=== PATIENT | female | born 2000 | race Caucasian/White ===

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

== ENCOUNTER 2022-02-06 03:27 | Emergency (ER) | payer OTHER ==
[~2022-02-06] VITALS: Ht 170.1 cm; Wt 52.2 kg
[~2022-02-06 03:27] MED LIST changes: +VIBRAMYCIN100 MG PO
[2022-02-06 04:47] LABS: BILIRUBIN Negative (Negative); BLOOD 3+ (Negative); CLARITY Turbid (Clear); COLOR Yellow (Yellow); GLUCOSE Negative (Negative); KETONE Trace (Negative); LEUKO ESTERASE Trace (Negative); NITRITE Negative (Negative); SPECIFIC GRAVITY 1.025 (1.001-1.030)
[2022-02-06 04:50] LABS: BASO % 0.3 % (0.0-1.0); EOS # 0.3 10*3/uL (0.0-0.4); EOS % 2.6 % (1.0-4.0); HEMATOCRIT 41.2 % (37.0-47.0); LYMPH # 3.5 10*3/uL (1.3-4.4); LYMPH % 32.8 % (27.0-41.0); MEAN CELL VOLUME 89.6 fl (81.0-99.0); MEAN CORPUSCULAR HGB 31.1 pg (27.0-31.0); MEAN CORPUSCULAR HGB CONC 34.7 g/dl (33.0-37.0); MEAN PLATELET VOLUME 10.3 fl (9.6-12.3); MONO # 1.1 10*3/uL (0.1-1.0); NEUT # 5.7 10*3/uL (2.3-7.9); NEUT % 54.1 % (47.0-73.0); PLATELET COUNT AUTOMATED 319 10*3/uL (130-400); RED CELL DISTRI WIDTH 12.4 % (0-14.5); WHITE BLOOD COUNT 10.5 10*3/uL (4.8-10.8)
[2022-02-06 04:59] LABS: ALKALINE PHOSPHATASE 86 U/L (46-116); BUN 7 mg/dl (9-23); CHLORIDE 105 mmol/L (98-107); CREATININE 0.69 mg/dL (0.55-1.02); POTASSIUM 3.4 mmol/L (3.4-5.1); SGPT/ALT 21 U/L (10-49); SODIUM 139 mmol/L (136-145); TOTAL PROTEIN 7.5 gm/dL (6.0-8.0)
[2022-02-06 05:05] LABS: EPITHELIAL CELLS 21-30
[2022-02-06 05:06] LABS: BACTERIA 1+; RBC 31-40 rbc/hpf (0-2)
== END 2022-02-06 06:09 | disposition home or self-care (01) ==
LOC: ED 03:27
PROVIDERS: Emergency Medicine
DX: K52.9 Noninfective gastroenteritis and colitis, unspecified (principal)

== ENCOUNTER 2022-12-14 00:28 | Emergency (ER) | payer OTHER ==
[2022-12-14 00:51] LABS: BILIRUBIN Negative (Negative); BLOOD Negative (Negative); CLARITY Turbid (Clear); COLOR Yellow (Yellow); GLUCOSE Negative (Negative); KETONE Negative (Negative); LEUKO ESTERASE Trace (Negative); NITRITE Positive (Negative); PH 7.5 (4.5-8.0); SPECIFIC GRAVITY 1.015 (1.001-1.030)
[2022-12-14 00:59] LABS: BACTERIA 2+; RBC 0-2 rbc/hpf (0-2)
[2022-12-14 01:22] LABS: HEMATOCRIT 39.2 % (37.0-47.0); MEAN CELL VOLUME 90.7 fl (81.0-99.0); MEAN CORPUSCULAR HGB CONC 34.2 g/dl (33.0-37.0); MEAN PLATELET VOLUME 10.1 fl (9.6-12.3); PLATELET COUNT AUTOMATED 324 10*3/uL (130-400); RED BLOOD COUNT 4.32 10*6/uL (4.10-5.10); RED CELL DISTRI WIDTH 11.9 % (0-14.5); WHITE BLOOD COUNT 14.1 10*3/uL (4.8-10.8)
[2022-12-14 01:23] LABS: MANUAL DIFF REFLEX YES
[2022-12-14 01:43] LABS: BASOPHILS 1 % (0-1); PLATELET SUFFICIENCY NORMAL (NORMAL); TOTAL CELLS COUNTED 100 #CELLS
[2022-12-14 01:44] LABS: ALKALINE PHOSPHATASE 91 U/L (46-116); BUN 10 mg/dl (9-23); CHLORIDE 105 mmol/L (98-107); POTASSIUM 3.6 mmol/L (3.4-5.1); SGPT/ALT 11 U/L (5-49); TOTAL PROTEIN 7.5 gm/dL (6.0-8.0)
[2022-12-14] MEDS ORDERED: OMNICEF300 MG PO (02:39)
== END 2022-12-14 02:57 | disposition home or self-care (01) ==
LOC: ED 00:28
PROVIDERS: Family Medicine
DX: N12 Tubulo-interstitial nephritis, not specified as acute or chronic (principal); Z90.49 Acquired absence of other specified parts of digestive tract; R11.0 Nausea

== ENCOUNTER 2023-03-30 20:52 | Emergency (ER) | payer OTHER ==
[~2023-03-30] VITALS: Ht 172.7 cm; Wt 72.1 kg
[2023-03-30 22:02] LABS: BASO % 0.3 % (0.0-1.0); EOS # 0.2 10*3/uL (0.0-0.4); EOS % 1.2 % (1.0-4.0); HEMATOCRIT 39.8 % (37.0-47.0); LYMPH # 3.8 10*3/uL (1.3-4.4); MEAN CELL VOLUME 92.3 fl (81.0-99.0); MEAN CORPUSCULAR HGB 30.6 pg (27.0-31.0); MEAN CORPUSCULAR HGB CONC 33.2 g/dl (33.0-37.0); MEAN PLATELET VOLUME 9.9 fl (9.6-12.3); MONO # 0.8 10*3/uL (0.1-1.0); NEUT # 9.1 10*3/uL (2.3-7.9); NEUT % 65.1 % (47.0-73.0); PLATELET COUNT AUTOMATED 344 10*3/uL (130-400); RED BLOOD COUNT 4.31 10*6/uL (4.10-5.10); RED CELL DISTRI WIDTH 12.4 % (0-14.5); WHITE BLOOD COUNT 13.9 10*3/uL (4.8-10.8)
[2023-03-30 22:12] LABS: BILIRUBIN Negative (Negative); BLOOD Negative (Negative); CLARITY Turbid (Clear); COLOR Yellow (Yellow); GLUCOSE Negative (Negative); KETONE Negative (Negative); LEUKO ESTERASE 2+ (Negative); NITRITE Negative (Negative)
[2023-03-30 22:31] LABS: ALKALINE PHOSPHATASE 71 U/L (46-116); BUN 5 mg/dl (9-23); CHLORIDE 104 mmol/L (98-107); POTASSIUM 3.7 mmol/L (3.4-5.1); SGPT/ALT 11 U/L (5-49); TOTAL PROTEIN 7.8 gm/dL (6.0-8.0)
[2023-03-30 22:31] LABS: BACTERIA TRACE; EPITHELIAL CELLS TNTC; WBC 16-20 wbc/hpf (0-5)
[2023-03-30] MEDS ORDERED: CEPHALEXIN500 M1 PO (22:55)
== END 2023-03-30 23:15 | disposition home or self-care (01) ==
LOC: ED 20:52
PROVIDERS: Nurse Practitioner Family
DX: O26.891 Other specified pregnancy related conditions, first trimester (principal); R82.71 Bacteriuria; Z3A.01 Less than 8 weeks gestation of pregnancy; Z90.49 Acquired absence of other specified parts of digestive tract

== ENCOUNTER 2023-05-22 04:23 | Emergency (ER) | payer OTHER ==
[~2023-05-22] VITALS: Ht 170.1 cm; Wt 68.0 kg
[~2023-05-22 04:23] MED LIST changes: +CEPHALEXIN500 M1 PO
[2023-05-22] MEDS ORDERED: AMOX-CLAV 875-1 EACH PO (04:44)
[2023-05-22] MEDS ORDERED: Amoxicillin/Clavulanate Pota 875 MG TAB PO ONE (04:45)
[2023-05-22] MEDS ORDERED: Ondansetron Hydrochloride 4 MG TAB SL ONE (04:45)
== END 2023-05-22 04:56 | disposition home or self-care (01) ==
LOC: ED 04:23
DX: O98.811 Other maternal infectious and parasitic diseases complicating pregnancy, first trimester (principal); H66.91 Otitis media, unspecified, right ear; O21.8 Other vomiting complicating pregnancy; Z79.2 Long term (current) use of antibiotics; Z3A.13 13 weeks gestation of pregnancy

== ENCOUNTER 2024-06-27 11:32 | Emergency (ER) | payer OTHER ==
[~2024-06-27] VITALS: Ht 175.2 cm; Wt 72.6 kg
[~2024-06-27 11:32] MED LIST changes: +AMOX-CLAV 875-1 EACH PO
== END 2024-06-27 12:42 | disposition home or self-care (01) ==
LOC: ED 11:32
DX: M72.2 Plantar fascial fibromatosis (principal)

== ENCOUNTER 2024-10-10 06:12 | Emergency (ER) | payer OTHER ==
[~2024-10-10] VITALS: Ht 177.8 cm; Wt 72.6 kg
[2024-10-10 06:59] LABS: BASO # 0.1 10*3/uL (0.0-0.1); BASO % 0.5 % (0.0-1.0); EOS # 0.3 10*3/uL (0.0-0.4); EOS % 2.6 % (1.0-4.0); MEAN CELL VOLUME 90.8 fl (81.0-99.0); MEAN CORPUSCULAR HGB 29.4 pg (27.0-31.0); MEAN PLATELET VOLUME 10.1 fl (9.6-12.3); MONO # 0.8 10*3/uL (0.1-1.0); MONO % 7.9 % (3.0-9.0); NEUT # 5.6 10*3/uL (2.3-7.9); NEUT % 52.8 % (47.0-73.0); NUCLEATED RED BLOOD CELL 0.0 % (0.0-0.0); NUCLEATED RED BLOOD CELL 0.0 10*3/uL (0.0-0.0); PLATELET COUNT AUTOMATED 279 10*3/uL (130-400); RED CELL DISTRI WIDTH 12.7 % (0-14.5)
== END 2024-10-10 07:35 | disposition home or self-care (01) ==
LOC: ED 06:12
PROVIDERS: Internal Medicine
DX: M25.562 Pain in left knee (principal); Z90.49 Acquired absence of other specified parts of digestive tract

== ENCOUNTER 2024-12-28 21:57 | Emergency (ER) | payer OTHER ==
[~2024-12-28] VITALS: Ht 175.2 cm; Wt 73.5 kg
[2024-12-28] MEDS ORDERED: METRONIDAZOLE500 M1 PO (22:54)
[2024-12-28] MEDS ORDERED: MONISTAT 745 GM V (22:56)
[2024-12-28] MEDS ORDERED: metroNIDAZOLE 500 MG TAB PO ONE (23:00)
[2024-12-28] MEDS ORDERED: AZITHROMYCIN 250 MG TAB PO ONE (23:00)
== END 2024-12-29 00:01 | disposition home or self-care (01) ==
LOC: ED 21:57
DX: B37.31 Acute candidiasis of vulva and vagina (principal); Z20.2 Contact with and (suspected) exposure to infections with a predominantly sexual mode of transmission; Z90.49 Acquired absence of other specified parts of digestive tract

== ENCOUNTER 2025-01-30 23:41 | Emergency (ER) | payer OTHER ==
[~2025-01-30] VITALS: Ht 177.8 cm; Wt 72.6 kg
[~2025-01-30 23:41] MED LIST changes: +METRONIDAZOLE500 M1 PO; +MONISTAT 745 GM V
== END 2025-01-31 02:54 | disposition home or self-care (01) ==
LOC: ED 23:41
DX: R20.0 Anesthesia of skin (principal); R20.2 Paresthesia of skin; M79.602 Pain in left arm

== ENCOUNTER → 2025-01-31 | Outpatient (CLI) | payer OTHER | END | disposition home or self-care (01) | LOC: US 14:46 | PROVIDERS: ATTEND Student in an Organized Health Care Education/Training Program | DX: M79.602 Pain in left arm (principal); M79.642 Pain in left hand ==